=== PATIENT | female | born 1990 | race Hispanic/Latino ===

== ENCOUNTER 2018-01-13 11:33 | Emergency (ER) | payer BC, SELFPAY ==
[2018-01-13] MEDS ORDERED: DIPHENHYDRAMINE 50 MG/ML VIAL ONE (12:35)
[2018-01-13] MEDS ORDERED: NA CHLORIDE 0.9% 1,000 ML ONE (12:35)
[2018-01-13] MEDS ORDERED: METOCLOPRAMIDE 10 MG/2mL INJ ONE (12:35)
[2018-01-13 12:36] LABS: Urine Blood NEGATIVE (NEG); Urine Glucose NEGATIVE (NEG); Urine Protein NEGATIVE (NEG); Urine Specific Gravity >1.030 (1.005-1.030); Urine pH 5.5 (5.0-7.0)
[2018-01-13 12:37] LABS: Urine Bacteria 20-50 /HPF (<20); Urine Culture Reflex Order REFLEXED; Urine Mucus 3+ /HPF (NONE SEEN); Urine RBC <5 /HPF (NONE SEEN)
[2018-01-13 12:47] LABS: BUN Blood Urea Nitrogen 5 mg/dL (7-18); Bicarbonate 24 mmol/L (21-32); Glucose Level 86 mg/dL (74-106); Potassium 3.6 mmol/L (3.5-5.1); Sodium Level 138 mmol/L (136-145)
--- NOTE | 2018-01-13 13:25 | EDPHYS ---
Physician Documentation [facility] Name: Anita Lanier Age: 27 yrs Sex: Female : 1990 Arrival Date: 01/13/2018 Time: 11:34 Bed 20 Private MD: Urban Rodrigues T; Rekhi, Mini ED Physician Ulisses Bergeron HPI: 01/13 12:09 This 27 yrs old Female presents to ER via Ambulatory with complaints of jmm Dehydration-12 Wks Preg, Blood Pressure Problem. 12:09 The patient presents to the emergency department with nausea, vomiting. Onset: The jmm symptoms/episode began/occurred gradually, 2 month(s) ago. Possible causes: . The symptoms are aggravated by nothing. The symptoms are alleviated by nothing. This is a 27 year old female approx 12 weeks that presents to the ED with vomiting which has been ongoing for the past 2 months. Patient states her migraines have not resolved and is concerned she may be dehydrated. Patient states she had similar symptoms with previous . Denies vaginal bleeding, denies abdominal pain, denies fever. . 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 - Social history:: Smoking status: Patient/guardian denies using tobacco. - Ebola Screening: : Patient denies travel to an Ebola-affected area in the 21 days before illness onset. ROS: 12:09 Constitutional: Negative for fever, chills, and weight loss, Eyes: Negative for injury, jmm pain, redness, and discharge, Cardiovascular: Negative for chest pain, palpitations, and edema, Respiratory: Negative for shortness of breath, cough, wheezing, and pleuritic chest pain. 12:09 Abdomen/GI: Positive for vomiting. 12:09 Neuro: Positive for headache. 12:09 All other systems are negative. Exam: 12:09 Head/Face: atraumatic. Eyes: EOMI, no conjunctival erythema appreciated ENT: Moist jmm Mucus Membranes Neck: Trachea midline, Supple Chest/axilla: Normal chest wall appearance and motion. Cardiovascular: Regular rate and rhythm. No edema appreciated Respiratory: Normal respirations, no respiratory distress appreciated Abdomen/GI: Non distended, soft Back: Normal ROM Skin: General appearance color normal MS/ Extremity: Moves all extremities, no obvious deformities appreciated, no edema noted to the lower extremities Neuro: Awake and alert, normal gait Psych: Behavior is normal, Mood is normal, Patient is cooperative and pleasant 12:09 Constitutional: The patient appears in no acute distress, alert, awake. 13:22 Abdomen/GI: Inspection: abdomen appears normal, Palpation: abdomen is soft and jmm non-tender, in all quadrants, soft, in all quadrants. Vital Signs: 11:47 BP 110 / 73; Pulse 83; Resp 18; Temp 97.2; Pulse Ox 100% on R/A; Weight 78.47 kg (R); aj1 Height 5 ft. 2 in. (157.48 cm) (R); Pain 6/10; 11:47 Body Mass Index 31.64 (78.47 kg, 157.48 cm) aj1 MDM: 12:09 Patient medically screened. [facility] 13:23 Data reviewed: vital signs, nurses notes. Data interpreted: Pulse oximetry: on room air jmm is 100 %. Interpretation: normal. Counseling: I had a detailed discussion with the patient and/or guardian regarding: the historical points, exam findings, and any diagnostic results supporting the discharge/admit diagnosis, lab results, the need for outpatient follow up, to return to the emergency department if symptoms worsen or persist or if there are any questions or concerns that arise at home. ED course: Symptoms relieved in the ED. 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 Patient given return precautions. Patient understood and agrees with the plan of care. . 01/13 12:13 Order name: Urine Microscopic Only; Complete Time: 13:03 bp 01/13 12:13 Order name: BMP; Complete Time: 13:03 jmm 01/13 12:23 Order name: Urine Dipstick--Ancillary (enter results); Complete Time: 13:03 bd 01/13 12:23 Order name: Urine --Ancillary (enter results); Complete Time: 13:03 bd 01/13 12:40 Order name: Urine Culture EDCO 01/13 12:13 Order name: Urine Dipstick-Ancillary (obtain specimen); Complete Time: 12:13 bp 01/13 12:13 Order name: Urine Test (obtain specimen); Complete Time: 12:13 bp 01/13 12:13 Order name: Saline Lock; Complete Time: 12:[address] [facility] Administered Medications: 12:30 Drug: NS 0.9% 1000 ml Route: IV; Rate: 1 bolus; Site: left antecubital; bp 13:42 Follow up: IV Status: Completed infusion; IV Intake: 1000ml bp 12:30 Drug: Reglan 10 mg Route: IVP; Site: left antecubital; bp 13:26 Follow up: Response: No adverse reaction; Marked relief of symptoms bp 12:30 Drug: diphenhydrAMINE 12.5 mg Route: IVP; Site: left antecubital; bp 13:27 Follow up: Response: No adverse reaction; Marked relief of symptoms bp Disposition: 18:30 Co-signature as Attending Physician, Ulisses Bergeron MD. rn Disposition: 01/13/18 13:24 Discharged to Home. Impression: Urinary tract infection, site not specified, Vomiting of , unspecified, Migraine. - Condition is Stable. - Discharge Instructions: Migraine Headache, Asymptomatic Bacteriuria, Female. - Prescriptions for Diclegis 10- 10 mg Oral tablet,delayed release (DR/EC) - take 2 tablet by ORAL route once daily; 20 tablet. Keflex 500 mg Oral Capsule - take 1 capsule by ORAL route every 12 hours for 10 days; 20 capsule. - Medication Reconciliation Form, Thank You Letter, Antibiotic Education, Prescription Opioid Use form. - Follow up: Tonya Hoffman MD; When: 1 - 2 days; Reason: Recheck today's complaints, Continuance of care, Re-evaluation by your physician. Signatures: Dispatcher [employer] EDKierra Anthony RN RN aj1 Moises Villa PA PA jmm Nieto, Roman, MD MD rn Peltier, Brian, RN RN bp Corrections: (The following items were deleted from the chart) 13:44 13:24 01/13/2018 13:24 Discharged to Home. Impression: Urinary tract infection, site bp not specified; Vomiting of , unspecified; Migraine. Condition is Stable. Forms are Medication Reconciliation Form, Thank You Letter, Antibiotic Education, Prescription Opioid Use. Follow up: Tonya Hoffman; When: 1 - 2 days; Reason: Recheck today's complaints, Continuance of care, Re-evaluation by your physician. chong
--- NOTE | 2018-01-13 13:25 | ER ---
Nurse's Notes [facility] Name: Anita Lanier Age: 27 yrs Sex: Female : 1990 Arrival Date: 01/13/2018 Time: 11:34 Bed 20 Private MD: Urban Rodrigues T; Rekhi, Mini Diagnosis: Urinary tract infection, site not specified;Vomiting of , unspecified;Migraine Presentation: 01/13 11:43 Presenting complaint: Patient states: "I went to the neurologist yesterday because I've aj1 had a migraine since . I've been really dizzy and light-headed. He took my blood pressure yesterday and it was 91/60. He said if my blood pressure stays low to come to the ER because I'm probably dehydrated because I've been throwing up and I don't drink a lot of water. I thought my migraine and dizziness would be better by now but its not" Patient states that she is currently 12 weeks . Transition of care: patient was not received from another setting of care. Onset of symptoms was December 2017. Risk Assessment: Do you want to hurt yourself or someone else? Patient reports no desire to harm self or others. Initial Sepsis Screen: Does the patient meet any 2 criteria? No. Patient's initial sepsis screen is negative. Does the patient have a suspected source of infection? No. Patient's initial sepsis screen is negative. Care prior to arrival: None. 11:43 Method Of Arrival: Ambulatory aj1 11:43 Acuity: IVETT 3 aj1 Triage Assessment: 11:47 General: Appears in no apparent distress. comfortable, Behavior is calm, cooperative, aj1 appropriate for age. Pain: Complains of pain in left eye Pain currently is 6 out of 10 on a pain scale. Neuro: Level of Consciousness is awake, alert, obeys commands. Cardiovascular: Patient's skin is warm and dry. Respiratory: Airway is patent Respiratory effort is even, unlabored, Respiratory pattern is regular, symmetrical. 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 - Social history:: Smoking status: Patient/guardian denies using tobacco. - Ebola Screening: : Patient denies travel to an Ebola-affected area in the 21 days before illness onset. Screenin:57 Abuse screen: Denies threats or abuse. Denies injuries from another. Nutritional bp screening: No deficits noted. Tuberculosis screening: No symptoms or risk factors identified. Fall Risk None identified. Assessment: 11:50 General: Appears in no apparent distress. comfortable, Behavior is calm, cooperative, bp appropriate for age. Pain: Denies pain. Neuro: Level of Consciousness is awake, alert, obeys commands, Oriented to person, place, time, situation, Appropriate for age. Cardiovascular: No deficits noted. Respiratory: Airway is patent Respiratory effort is even, unlabored, Respiratory pattern is regular, symmetrical. GI: No signs and/or symptoms were reported involving the gastrointestinal system. : No signs and/or symptoms were reported regarding the genitourinary system. EENT: No deficits noted. Derm: No deficits noted. Musculoskeletal: Circulation, motion, and sensation intact. Range of motion: intact in all extremities. 13:43 Reassessment: PT D/C HOME AMBULATORY WITH FAMILY, DX WITH MIGRAINE AND UTI. bp Vital Signs: 11:47 BP 110 / 73; Pulse 83; Resp 18; Temp 97.2; Pulse Ox 100% on R/A; Weight 78.47 kg (R); aj1 Height 5 ft. 2 in. (157.48 cm) (R); Pain 6/10; 11:47 Body Mass Index 31.64 (78.47 kg, 157.48 cm) aj1 ED Course: 11:34 Patient arrived in ED. as 11:35 Urban Rodrigues MD is Private Physician. as 11:35 Tonya Hoffman MD is Private Physician. as 11:47 Triage completed. aj1 11:47 Arm band placed on Patient placed in an exam room. aj1 11:51 Moises Villa PA is PHCP. [facility] 11:51 Ulisses Bergeron MD is Attending Physician. jmm 11:55 Pablo Redmond, ENID is Primary Nurse. bp 11:55 Urine collected: clean catch specimen, clear, alejandro colored, Amount Voided: 80mL. jp3 11:57 Patient has correct armband on for positive identification. Bed in low position. Call bp light in reach. Side rails up X2. Adult w/ patient. 13:08 Urine Culture Sent. jp3 13:24 Tonya Hoffman MD is Referral Physician. [facility] 13:43 No provider procedures requiring assistance completed. IV discontinued, intact, bp bleeding controlled, No redness/swelling at site. Pressure dressing applied. Administered Medications: 12:30 Drug: NS 0.9% 1000 ml Route: IV; Rate: 1 bolus; Site: left antecubital; bp 13:42 Follow up: IV Status: Completed infusion; IV Intake: 1000ml bp 12:30 Drug: Reglan 10 mg Route: IVP; Site: left antecubital; bp 13:26 Follow up: Response: No adverse reaction; Marked relief of symptoms bp 12:30 Drug: diphenhydrAMINE 12.5 mg Route: IVP; Site: left antecubital; bp 13:27 Follow up: Response: No adverse reaction; Marked relief of symptoms bp Intake: 13:42 IV: 1000ml; Total: 1000ml. bp Outcome: 13:24 Discharge ordered by MD. jm 13:44 Discharged to home ambulatory, with family. bp 13:44 Condition: stable 13:44 Discharge instructions given to patient, Instructed on discharge instructions, follow up and referral plans. medication usage, Demonstrated understanding of instructions, follow-up care, medications, Prescriptions given X 2. 13:44 Patient left the ED. bp Signatures: Kierra Mckay, RN RN aj1 Moises Villa PA PA jmm Martinez, Amelia as Peltier, Brian, RN RN bp Tony Driscoll jp3 Corrections: (The following items were deleted from the chart) 11:48 11:43 Presenting complaint: Patient states: "I went to the neurologist yesterday aj1 because I've had a migraine since . I've been really dizzy and light-headed. He took my blood pressure yesterday and it was 91/60. He said if my blood pressure stays low to come to the ER because I'm probably dehydrated because I've been throwing up and I don't drink a lot of water. I thought my migraine and dizziness would be better by now but its not" aj1
[2018-01-13 14:03] VITALS: BP 110/73; TEMP 97.2; O2SAT 100
== END 2018-01-13 13:44 | disposition home or self-care (01) ==
LOC: ER 11:33
DX: O23.41 Unspecified infection of urinary tract in pregnancy, first trimester (principal); G43.909 Migraine, unspecified, not intractable, without status migrainosus; Z3A.12 12 weeks gestation of pregnancy
CPT/HCPCS: 36415; 80048; 81003; 81015; 81025; 87086; 87088; 96361; 96374; 96375; 99283; J2765; J7030

== ENCOUNTER 2018-07-01 01:21 | Inpatient (IN) | payer BC ==
[2018-07-01] MEDS ORDERED: CARBOPROST TROME 250 MCG/ML IM PRN (07:39)
[2018-07-01] MEDS ORDERED: PROMETHAZINE 25 MG/ML VIAL IV PRN (07:39)
[2018-07-01] MEDS ORDERED: METHYLERGONOVINE 0.2MG/ML AMP IM PRN (07:39)
[2018-07-01] MEDS ORDERED: Ringers Lactate 1,000 ML IV PRN (07:39)
[2018-07-01] MEDS ORDERED: LIDOCAINE 1% MPF 30 ML VIAL SQ ONE (07:45)
[2018-07-01] MEDS ORDERED: ROPIVACAINE HCL 100 ML IV PRN (07:48)
[2018-07-01] MEDS ORDERED: FENTANYL CITR 100 MCG/2 ML IV ONE (07:48)
[2018-07-01] MEDS ORDERED: OXYTOCIN/LR 20 UNIT/1,000 ML BAG IV SCH (08:00)
[2018-07-01] MEDS ORDERED: Ringers Lactate 1,000 ML IV SCH (08:00)
[2018-07-01 08:07] LABS: RPR Titer ND
[2018-07-01 08:11] LABS: Urine Appearance CLEAR; Urine Bilirubin NEGATIVE (NEG); Urine Blood NEGATIVE (NEG); Urine Color YELLOW; Urine Glucose NEGATIVE (NEG); Urine Protein NEGATIVE (NEG); Urine Urobilinogen 0.2 mg/dL (0.2-1.0)
[2018-07-01 08:13] LABS: Absolute Lymphocytes (CBC) 2.1 K/uL (0.7-4.9); Absolute Monocytes 0.6 K/uL (0.1-1.3); Absolute Neutrophil 4.8 K/uL (1.8-8.0); Basophils % 0.3 % (0-1.3); Eosinophils % 0.7 % (0-4.4); Hematocrit 33.9 % (36.0-45.0); Lymphocytes % 27.9 % (15.3-44.8); MPV 10.6 fL (7.6-11.3); Monocytes % 7.4 % (3.3-12.3); RBC Red Blood Cell Count 4.14 M/uL (3.86-4.86)
[2018-07-01 08:19] LABS: Urine Microscopic Reflex ORDER UMIC
[2018-07-01 08:41] LABS: Urine Bacteria >50 /HPF (<20); Urine Culture Reflex Order REFLEXED; Urine RBC <5 /HPF (NONE SEEN)
--- NOTE | 2018-07-01 17:12 | P.PN ---
Date of Service: 07/01/18 Patient is a 27 y/o at 37 weeks gestation admitted for induction of labor secondary to intrahepatic cholestasis of and uteroplacental insufficiency. Patient had rupture of membranes performed earlier. She has been on pitocin for labor augmentation. She has received her epidural and is comfortable. VSS TOCO contractions every 3-5 minutes. VE: 3-4/ 60%/-2 station. - continue pitocin. - epidural in place - continuous maternal monitoring. - anticipate vaginal
[2018-07-01 21:30] LABS: RPR (Rapid Plasma Reagin) NON-REACT (NON-REACT)
[2018-07-01] MEDS ORDERED: CARBOPROST TROME 250 MCG/ML IM ONE (22:33)
[2018-07-01] MEDS ORDERED: LIDOCAINE 2% MPF 5 ML VIAL ONE (22:33)
[2018-07-01] MEDS ORDERED: ONDANSETRON 4 MG (ODT) TAB PO PRN (22:48)
[2018-07-01] MEDS ORDERED: DOCUSATE NA/SENNA CONC 1 TAB PO PRN (22:48)
[2018-07-01] MEDS ORDERED: ACETAMINOPHEN 500 MG TAB PO PRN (22:48)
[2018-07-01] MEDS ORDERED: Oxycodone HCl/Acetaminophen 1 TAB TAB PO PRN (22:48)
[2018-07-01] MEDS ORDERED: METHYLERGONOVINE 0.2 MG TAB PO PRN (22:48)
[2018-07-01] MEDS ORDERED: DOCUSATE NA 100 MG CAP PO PRN (22:52)
--- NOTE | 2018-07-01 22:59 | P.OP ---
Date of Service: 07/01/18 Findings and Operative Technique Patient delivered a viable female in cephalic presentation on 07/01/18 at . There was no nuchal cord. Once was delivered nose and mouth were suctioned with a suction bulb and cord was clamped and cut and infant was placed on mother's abdomen for skin to skin bonding. Attention was then turned to the umbilical cord. Cord blood was obtained. Placenta was then delivered with gentle traction at ____. Placenta was inspected and found to be intact. Attention was then turned to the perineum and it was noted to have a superficial laceration which was repaired with a 2.0 vicryl in a simple stitch. EBL was 200cc. Both mom and baby are doing well. APGARS were __. Weight was found to be . First stage of labor was ____. Second stage of labor was ____ . Routine care will be provided.
[2018-07-02] MEDS: IBUPROFEN 200 MG TAB PO PRN ×2 (01:17→08:15)
[2018-07-02 06:40] LABS: Absolute Lymphocytes (CBC) 1.7 K/uL (0.7-4.9); Absolute Monocytes 0.9 K/uL (0.1-1.3); Absolute Neutrophil 11.2 K/uL (1.8-8.0); Basophils % 0.3 % (0-1.3); Eosinophils % 0.5 % (0-4.4); Hematocrit 30.6 % (36.0-45.0); Lymphocytes % 12.3 % (15.3-44.8); MPV 10.4 fL (7.6-11.3); Monocytes % 6.7 % (3.3-12.3); RBC Red Blood Cell Count 3.71 M/uL (3.86-4.86)
[2018-07-02 06:41] VITALS: BMI 32.0
[2018-07-02 07:17] LABS: ALT/SGPT 19 U/L (12-78); AST/SGOT 20 U/L (15-37); Albumin 2.1 g/dL (3.4-5.0); Alkaline Phosphatase 208 U/L (45-117); BUN Blood Urea Nitrogen 3 mg/dL (7-18); Bicarbonate 23 mmol/L (21-32); Bilirubin Total 0.3 mg/dL (0.2-1.0); Glucose Level 115 mg/dL (74-106); Potassium 3.6 mmol/L (3.5-5.1); Protein, Total 5.6 g/dL (6.4-8.2); Sodium Level 141 mmol/L (136-145)
[2018-07-02] MEDS ORDERED: PRENATAL VITAMIN PO SCH (09:00)
[2018-07-02 20:10] VITALS: BP 114/66; TEMP 96.9
[2018-07-05 02:32] LABS: HBsAG Nonreactive (Nonreactive)
== END 2018-07-03 00:35 | disposition home or self-care (01) | DRG 805 ==
LOC: 2ND-WC 07:06
PROVIDERS: ADMIT Student in an Organized Health Care Education/Training Program; ATTEND Student in an Organized Health Care Education/Training Program
PROC: 10E0XZZ Delivery of Products of Conception, External Approach (ICD-10-PCS; principal; 2018-07-01)
PROC: 0HQ9XZZ Repair Perineum Skin, External Approach (ICD-10-PCS; 2018-07-01)
PROC: 3E033VJ Introduction of Other Hormone into Peripheral Vein, Percutaneous Approach (ICD-10-PCS; 2018-07-01)
DX: O26.62 Liver and biliary tract disorders in childbirth (principal); K83.1 Obstruction of bile duct; Z37.0 Single live birth; Z3A.37 37 weeks gestation of pregnancy; O36.5130 Maternal care for known or suspected placental insufficiency, third trimester, not applicable or unspecified; O70.0 First degree perineal laceration during delivery
CPT/HCPCS: 36415; 80053; 81003; 81015; 85025; 86592; 86901; 87086; 87088; 87340; 88307; J2210; J2590; J2795; J3010

== ENCOUNTER 2018-12-13 02:41 | Emergency (ER) | payer BC ==
[2018-12-13] MEDS ORDERED: NA CHLORIDE 0.9% 1,000 ML ONE (04:07)
[2018-12-13] MEDS ORDERED: THIAMINE 200 MG/2 ML INJ ONE (04:07)
[2018-12-13] MEDS ORDERED: FAMOTIDINE 20 MG/2 ML VIAL IV ONE (04:07)
[2018-12-13] MEDS ORDERED: ONDANSETRON 4 MG/2 ML VIAL ONE (04:07)
--- NOTE | 2018-12-13 04:50 | ER ---
Nurse's Notes [facility] Name: Anita Lanier Age: 28 yrs Sex: Female : 1990 Arrival Date: 12/13/2018 Time: 02:46 Bed 16 Private MD: Urban Rodrigues T Diagnosis: Vomiting;Alcohol abuse with intoxication;Gastritis, unspecified Presentation: 12/13 02:59 Presenting complaint: EMS states: Pt was drinking since 7pm this evening and they wh stopped approximately at midnight. PT had an episode of blood tinged vomitus once in front of and twice with EMS. 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 Transition of care: patient was not received from another setting of care. Onset of symptoms was December 13, 2018. Risk Assessment: Do you want to hurt yourself or someone else? Patient reports no desire to harm self or others. Initial Sepsis Screen: Does the patient meet any 2 criteria? HR > 90 bpm. Does the patient have a suspected source of infection? No. Patient's initial sepsis screen is negative. Care prior to arrival: Medication(s) given: Normal saline infusion, 500 mL, Bolus Zofran 4mg IV IV initiated. 20 GA, in the right antecubital area. 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 - Social history:: Smoking status: Patient/guardian denies using tobacco. - Ebola Screening: : Patient negative for fever greater than or equal to 101.5 degrees Fahrenheit, and additional compatible Ebola Virus Disease symptoms Patient denies exposure to infectious person. - Family history:: not pertinent. Screenin:04 Abuse screen: Denies threats or abuse. Denies injuries from another. Nutritional screening: No deficits noted. Tuberculosis screening: No symptoms or risk factors identified. Fall Risk None identified. Assessment: 03:10 General: Appears in no apparent distress. Behavior is crying, drowsy, Smells of wh alcohol. Pain: Denies pain. Neuro: Level of Consciousness is awake, alert, obeys commands. Cardiovascular: Heart tones S1 S2. Respiratory: Airway is patent Respiratory effort is even, unlabored, Respiratory pattern is regular, symmetrical, Breath sounds are clear bilaterally. GI: Abdomen is flat, non-distended, Parent/caregiver reports the patient having nausea, vomiting. : No signs and/or symptoms were reported regarding the genitourinary system. EENT: No signs and/or symptoms were reported regarding the EENT system. Derm: Skin is intact, is healthy with good turgor, Skin is pink, warm \T\ dry. normal. Musculoskeletal: Circulation, motion, and sensation intact. 04:22 Reassessment: Patient appears in no apparent distress at this time. No changes from previously documented assessment. Patient and/or family updated on plan of care and expected duration. Pain level reassessed. Patient is alert, oriented x 3, equal unlabored respirations, skin warm/dry/pink. 05:19 Reassessment: Patient appears in no apparent distress at this time. No changes from previously documented assessment. Patient and/or family updated on plan of care and expected duration. Pain level reassessed. Patient is alert, oriented x 3, equal unlabored respirations, skin warm/dry/pink. Patient states feeling better. Patient states symptoms have improved. 05:24 Reassessment: DC Held awaiting lab results per MD. Vital Signs: 03:07 BP 121 / 86; Pulse 96; Resp 18; Temp 98.8; Pulse Ox 100% on R/A; Weight 72.57 kg; Height 5 ft. 2 in. (157.48 cm); 04:22 BP 99 / 66; Pulse 71; Resp 18; Pulse Ox 100% on R/A; 05:23 BP 91 / 63; Pulse 82; Resp 18; Pulse Ox 100% on R/A; 03:07 Body Mass Index 29.26 (72.57 kg, 157.48 cm) ED Course: 02:46 Patient arrived in ED. es 02:46 Urban Rodrigues MD is Private Physician. es 02:59 Antonette Oh is Primary Nurse. 03:04 Triage completed. 03:06 Arm band placed on right wrist. 03:06 Placed in gown. Bed in low position. Call light in reach. Side rails up X 1. Pulse ox wh on. NIBP on. 03:10 Maintain EMS IV. 03:26 Alexei Laguerre MD is Attending Physician. [facility] 04:48 Urban Rodrigues MD is Referral Physician. [facility] 05:59 No provider procedures requiring assistance completed. IV discontinued, intact, bleeding controlled, No redness/swelling at site. Administered Medications: 04:00 Drug: NS 0.9% 1000 ml Route: IV; Rate: 1 bolus; Site: right antecubital; 05:16 Follow up: Response: No adverse reaction; IV Status: Completed infusion 04:00 Drug: Thiamine 100 mg Route: IV; Rate: bolus; Site: right antecubital; 05:16 Follow up: Response: No adverse reaction; IV Status: Completed infusion 04:10 Drug: Zofran 4 mg Route: IVP; Site: right antecubital; 05:16 Follow up: Response: No adverse reaction; Nausea is decreased 04:13 Drug: Pepcid 20 mg Route: IVP; Site: right antecubital; 05:16 Follow up: Response: No adverse reaction Outcome: 04:49 Discharge ordered by . [facility] 05:59 Discharged to home via wheelchair, with family. 05:59 Condition: stable 05:59 Discharge instructions given to patient, family, Instructed on discharge instructions, follow up and referral plans. medication usage, POC Demonstrated understanding of instructions, follow-up care, medications, POC Prescriptions given X 3. 06:00 Patient left the ED. Signatures: Alexei Laguerre MD MD cha Salyer, Antonette Bravo
--- NOTE | 2018-12-13 04:50 | EDPHYS ---
Physician Documentation [facility] Name: Anita Lanier Age: 28 yrs Sex: Female : 1990 Arrival Date: 12/13/2018 Time: 02:46 Bed 16 Private MD: Urban Rodrigues T ED Physician Alexei Laguerre HPI: 12/13 03:49 This 28 yrs old Female presents to ER via EMS with complaints of vomiting [place] after drinking. 03:49 The patient presents with abdominal pain in the upper abdomen. Onset: The [place] symptoms/episode began/occurred just prior to arrival. The patient presents to the emergency department with nausea, vomiting, abdominal pain, of the right upper quadrant and left upper quadrant. Onset: The symptoms/episode began/occurred just prior to arrival. Possible causes: etoh. The symptoms are aggravated by nothing. The symptoms are alleviated by remaining still. The symptoms do not radiate. Associated signs and symptoms: none. 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 - Social history:: Smoking status: Patient/guardian denies using tobacco. - Ebola Screening: : Patient negative for fever greater than or equal to 101.5 degrees Fahrenheit, and additional compatible Ebola Virus Disease symptoms Patient denies exposure to infectious person. - Family history:: not pertinent. ROS: 03:49 Constitutional: Negative for fever, chills, and weight loss, Eyes: Negative for injury, [place] pain, redness, and discharge, ENT: Negative for injury, pain, and discharge, Neck: Negative for injury, pain, and swelling, Cardiovascular: Negative for chest pain, palpitations, and edema, Respiratory: Negative for shortness of breath, cough, wheezing, and pleuritic chest pain, Back: Negative for injury and pain, : Negative for injury, bleeding, discharge, and swelling, MS/Extremity: Negative for injury and deformity, Skin: Negative for injury, rash, and discoloration, Neuro: Negative for headache, weakness, numbness, tingling, and seizure, Psych: Negative for depression, anxiety, suicide ideation, homicidal ideation, and hallucinations, Allergy/Immunology: Negative for hives, rash, and allergies, Endocrine: Negative for neck swelling, polydipsia, polyuria, polyphagia, and marked weight changes, Hematologic/Lymphatic: Negative for swollen nodes, abnormal bleeding, and unusual bruising. 03:49 Abdomen/GI: Positive for abdominal pain, vomiting. Exam: 03:49 Constitutional: This is a well developed, well nourished patient who is awake, alert, [place] and in no acute distress. Head/Face: Normocephalic, atraumatic. Eyes: Pupils equal round and reactive to light, extra-ocular motions intact. Lids and lashes normal. Conjunctiva and sclera are non-icteric and not injected. Cornea within normal limits. Periorbital areas with no swelling, redness, or edema. ENT: Nares patent. No nasal discharge, no septal abnormalities noted. Tympanic membranes are normal and external auditory canals are clear. Oropharynx with no redness, swelling, or masses, exudates, or evidence of obstruction, uvula midline. Mucous membranes moist. Neck: Trachea midline, no thyromegaly or masses palpated, and no cervical lymphadenopathy. Supple, full range of motion without nuchal rigidity, or vertebral point tenderness. No Meningismus. Chest/axilla: Normal chest wall appearance and motion. Nontender with no deformity. No lesions are appreciated. Cardiovascular: Regular rate and rhythm with a normal S1 and S2. No gallops, murmurs, or rubs. Normal PMI, no JVD. No pulse deficits. Respiratory: Lungs have equal breath sounds bilaterally, clear to auscultation and percussion. No rales, rhonchi or wheezes noted. No increased work of breathing, no retractions or nasal flaring. Back: No spinal tenderness. No costovertebral tenderness. Full range of motion. Skin: Warm, dry with normal turgor. Normal color with no rashes, no lesions, and no evidence of cellulitis. MS/ Extremity: Pulses equal, no cyanosis. Neurovascular intact. Full, normal range of motion. Neuro: Awake and alert, GCS 15, oriented to person, place, time, and situation. Cranial nerves II-XII grossly intact. Motor strength 5/5 in all extremities. Sensory grossly intact. Cerebellar exam normal. Normal gait. Psych: Awake, alert, with orientation to person, place and time. Behavior, mood, and affect are within normal limits. 03:49 Abdomen/GI: Inspection: abdomen appears normal, Bowel sounds: normal, Palpation: mild abdominal tenderness, in all quadrants, Liver: no appreciated palpable abnormalities, Hernia: not appreciated. Vital Signs: 03:07 BP 121 / 86; Pulse 96; Resp 18; Temp 98.8; Pulse Ox 100% on R/A; Weight 72.57 kg; Height 5 ft. 2 in. (157.48 cm); 04:22 BP 99 / 66; Pulse 71; Resp 18; Pulse Ox 100% on R/A; wh 05:23 BP 91 / 63; Pulse 82; Resp 18; Pulse Ox 100% on R/A; 03:07 Body Mass Index 29.26 (72.57 kg, 157.48 cm) MDM: 03:26 Patient medically screened. [facility] 03:52 Data reviewed: vital signs, nurses notes, lab test result(s). [facility] 12/13 03:49 Order name: Basic Metabolic Panel; Complete Time: 05:49 [facility] 12/13 03:49 Order name: CBC with Diff; Complete Time: 05:49 [facility] 12/13 03:49 Order name: Creatinine for Radiology; Complete Time: 05:49 [facility] 12/13 03:49 Order name: Hepatic Function; Complete Time: 05:49 [facility] 12/13 03:49 Order name: Lipase; Complete Time: 05:49 [facility] 12/13 03:49 Order name: Alcohol Level; Complete Time: 05:49 [facility] 12/13 03:49 Order name: IV Saline Lock; Complete Time: 04:02 [facility] 12/13 03:49 Order name: Labs collected and sent; Complete Time: 04:02 [facility] Administered Medications: 04:00 Drug: NS 0.9% 1000 ml Route: IV; Rate: 1 bolus; Site: right antecubital; 05:16 Follow up: Response: No adverse reaction; IV Status: Completed infusion 04:00 Drug: Thiamine 100 mg Route: IV; Rate: bolus; Site: right antecubital; 05:16 Follow up: Response: No adverse reaction; IV Status: Completed infusion 04:10 Drug: Zofran 4 mg Route: IVP; Site: right antecubital; 05:16 Follow up: Response: No adverse reaction; Nausea is decreased 04:13 Drug: Pepcid 20 mg Route: IVP; Site: right antecubital; 05:16 Follow up: Response: No adverse reaction Disposition: 12/13/18 04:49 Discharged to Home. Impression: Vomiting, Alcohol abuse with intoxication, Gastritis, unspecified. - Condition is Stable. - Discharge Instructions: Alcohol Intoxication, Nausea and Vomiting, Adult, Alcohol Intoxication, [id number], Nausea and Vomiting, Adult, [id number]. - Prescriptions for Pepcid 20 mg Oral Tablet - take 1 tablet by ORAL route every 12 hours for 10 days; 20 tablet. Vitamin 27- 0.8 mg Oral Tablet - take 1 tablet by ORAL route once daily; 30 tablet. Zofran 4 mg Oral Tablet - take 1 tablet by ORAL route every 12 hours As needed; 20 tablet. - Medication Reconciliation Form, Thank You Letter, Antibiotic Education, Prescription Opioid Use form. - Follow up: Urban Rodrigues; When: 2 - 3 days; Reason: Recheck today's complaints, Continuance of care, Re-evaluation by your physician. - Problem is new. - Symptoms have improved. Signatures: Dispatcher [employer] Alexei Carlisle MD MD cha [place], Winsy Corrections: (The following items were deleted from the chart) 06:00 04:49 12/13/2018 04:49 Discharged to Home. Impression: Vomiting; Alcohol abuse with wh intoxication; Gastritis, unspecified. Condition is Stable. Discharge Instructions: Alcohol Intoxication, Nausea and Vomiting, Adult, Alcohol Intoxication, [id number], Nausea and Vomiting, Adult, [id number]. Prescriptions for Pepcid 20 mg Oral Tablet - take 1 tablet by ORAL route every 12 hours for 10 days; 20 tablet, Vitamin 27-0.8 mg Oral Tablet - take 1 tablet by ORAL route once daily; 30 tablet, Zofran 4 mg Oral Tablet - take 1 tablet by ORAL route every 12 hours As needed; 20 tablet. and Forms are Medication Reconciliation Form, Thank You Letter, Antibiotic Education, Prescription Opioid Use. Follow up: Urban Rodrigues; When: 2 - 3 days; Reason: Recheck today's complaints, Continuance of care, Re-evaluation by your physician. Problem is new. Symptoms have improved. [place]
[2018-12-13 05:20] LABS: Absolute Lymphocytes (CBC) 1.2 K/uL (0.7-4.9); Basophils % 0.6 % (0-1.3); Lymphocytes % 20.8 % (15.3-44.8); MPV 11.1 fL (7.6-11.3); RBC Red Blood Cell Count 4.52 M/uL (3.86-4.86)
[2018-12-13 05:32] LABS: ALT/SGPT 48 U/L (12-78); AST/SGOT 27 U/L (15-37); Albumin 3.7 g/dL (3.4-5.0); Alkaline Phosphatase 117 U/L (45-117); BUN Blood Urea Nitrogen 4 mg/dL (7-18); Bicarbonate 22 mmol/L (21-32); Bilirubin Direct < 0.1 mg/dL (0-0.2); Bilirubin Total 0.2 mg/dL (0.2-1.0); Glucose Level 111 mg/dL (74-106); Lipase 173 U/L (73-393); Potassium 3.6 mmol/L (3.5-5.1); Protein, Total 7.5 g/dL (6.4-8.2); Sodium Level 144 mmol/L (136-145)
[2018-12-13 06:12] VITALS: O2SAT 100
[2018-12-13 06:13] VITALS: TEMP 98.8
[2018-12-13 06:14] VITALS: BP 91/63
== END 2018-12-13 06:00 | disposition home or self-care (01) ==
LOC: ER 02:41
DX: F10.129 Alcohol abuse with intoxication, unspecified (principal); K29.70 Gastritis, unspecified, without bleeding
CPT/HCPCS: 96365; 85025; 80048; 36415; 80320; 80076; 83690; 96375; 99284; J3411; J7030; J2405